=== PATIENT | male | born 1960 | race Caucasian/White ===

== ENCOUNTER 2023-02-09 07:36 | Emergency (ER) | payer OTHER, MEDICAID, SELFPAY ==
[2023-02-09 07:41] VITALS: BP 129/87; PULSE 83; RESP 16; TEMP 36.7; O2SAT 99; BMI 22.9
--- NOTE | 2023-02-09 07:48 | ED_ITS ---
HPI - Ear Problem General Chief complaint: Upper Respiratory Symptoms Stated complaint: throbbing in L ear, cough, headache Time Seen by Provider: 02/09/23 07:48 Source: patient Mode of arrival: Ambulatory Limitations: no limitations History of Present Illness HPI Narrative: This is a 62-year-old male with history of diabetes who presents with complaint of upper respiratory symptoms with nasal congestion, cough for the past 6 days and developed left ear pain in the past 24 hours. Patient states no fevers. He is had nasal congestion. He states cough with some small amount of occasional productive sputum that has been yellowish to clear. Denies any chest pain or pressure. States a lot of nasal drainage. Patient states no nausea or vomiting. No diarrhea or constipation, no urinary symptoms. Patient states started having left ear pain in the last 24 hours that is throbbing in nature. No pain on the right. No changes to hearing. Patient states about a year ago he did have some bloody drainage after having ear pain but has not had any since. States prior appendectomy. No known drug allergies. No tobacco, alcohol or illicit. Patient presents today more because of the pain. States that he was around his grandchildren a week ago and suspect that is where he caught his respiratory infection. Related Data Previous Rx's Medication Instructions Recorded fluticasone propionate 50 1 spray intranasal BID #16 grams 02/09/23 mcg/actuation nasal spray,suspension (24 Hour Allergy Relief) Allergies Allergy/AdvReac Type Severity Reaction Status Date / Time No Known Drug Allergies Allergy Verified 02/09/23 07:44 Review of Systems Review of Systems ROS Unobtainable: All systems reviewed & are unremarkable except as noted in HPI and below Patient History Social History Smoking Status: Never smoker Smoking Status: Never smoker alcohol intake frequency: other Substance Use Type: does not use Exam Narrative Exam Narrative: GEN: well nourished, well appearing male, alert and oriented x 3, patient appears to be in mild distress. HEENT: Atraumatic, pupils are equal round reactive to light, extraocular movements are intact, positive for nasal congestion, right TM is retracted with fluid, no erythema, no loss of light reflex or bulge. Left TM is retracted with fluid, patient has scant amount of erythema at the 11 o'clock edge, patient does not have any swelling of the canal. Light reflexes present there is no bulge., there is no conjunctival pallor. Throat is clear without any exudates, erythema, tonsillar enlargement or uvular deviation HEART: Regular rate and rhythm without murmur, clicks, rubs. LUNGS:Lungs clear to auscultation, no wheezes, rales, crackles, chest moves sym metrically ABD:bowel sounds normal, soft, non-tender, no guarding, rebound, rigidity, no masses noted, no hepatosplenomegaly MSCL: full range of motion, normal gait NEURO:CN 2-12 intact, sensation normal SKIN: No rash, erythema or other skin changes Initial Vital Signs Initial Vital Signs: Vital Signs Temperature 98.1 F 02/09/23 07:41 Pulse Rate 83 02/09/23 07:41 Respiratory Rate 16 02/09/23 07:41 Blood Pressure 129/87 02/09/23 07:41 Pulse Oximetry 99 02/09/23 07:41 Oxygen Delivery Method Room Air 02/09/23 07:41 Course Orders Ordered: ED Orders 02/09/23 07:45 Covid-19 + FLU A/B + RSV - PCR Stat Vital Signs Vital signs: Vital Signs - 8 hr 02/09/23 07:41 02/09/23 09:05 Temperature 98.1 F Pulse Rate 83 79 Respiratory Rate 16 16 Blood Pressure 129/87 Pulse Oximetry 99 100 Oxygen Delivery Method Room Air Room Air Medical Decision Making Lab Data Labs: Lab Results 02/09/23 Range/Units 07:45 SARS-CoV-2 (PCR) Negative (Negative) Influenza A (RT-PCR) Flu a negative (NEGATIVE) Influenza B (RT-PCR) Flu b negative (NEGATIVE) RSV (PCR) Negative (Negative) MDM Narrative Medical decision making narrative: 62-year-old male with CO2 consistent with upper respiratory infection patient has likely some eustachian tube dysfunction and has bilateral retracted TMs with fluid behind both there is a scant amount of erythema in the corner on the left ear but no changes consistent with otitis media otherwise. Discussed with patient would do antihistamine, Flonase to help open up the eustachian tubes for drainage. Patient did have a home COVID test which was negative but had requested testing here. COVID/influenza/RSV is negative. Discharge Plan Departure Patient Disposition: Home Clinical Impression: Upper respiratory infection, Acute pain of left ear Activity Restrictions/Additional Instructions: Your testing today is negative for COVID/influenza and RSV but there are many other viral illnesses in the community currently that can be causing your symptoms. I suspect you are having some eustachian tube dysfunction in your ears are not draining well there is no sign of an ear infection currently there is fluid behind the eardrum. Take loratadine or Zyrtec or similar antihistamine once daily. This is available [id number] at the pharmacy. Use Flonase 2 sprays to bilateral nose twice daily until symptoms resolve. Prescription sent to [facility] in [place]. Please return if you are having worsening pain, bloody drainage, sudden decrease in hearing, severe headaches, nausea or vomiting, new swelling, redness or other skin changes of the ear, face or airway or other new or concerning changes. Prescriptions: New fluticasone propionate [24 Hour Allergy Relief] 50 mcg/actuation spray,suspension 1 spray intranasal BID Qty: 16 0RF Rx Instructions: administer into each nostril Stand Alone Forms: Patient Portal/API
[2023-02-09 08:35] LABS: Influenza A - CEPHEID Flu A NEGATIVE (NEGATIVE); Influenza B - CEPHEID Flu B NEGATIVE (NEGATIVE); Respiratory Syncytial Virus Negative (Negative)
[2023-02-09 08:36] LABS: COVID-19 CEPHEID 4-PLEX PCR Negative (Negative)
[2023-02-09 09:05] VITALS: PULSE 79; RESP 16; O2SAT 100
== END 2023-02-09 09:06 | disposition home or self-care (01) ==
PROVIDERS: Emergency Provider Emergency Medicine
DX: J06.9 Acute upper respiratory infection, unspecified (principal); H92.02 Otalgia, left ear
CPT/HCPCS: 0241U; 99281; 99283